=== PATIENT | female | born 1990 | race African-American/Black ===

== ENCOUNTER 2020-08-04 10:56 | Inpatient (IN) | payer OTHER ==
[~2020-08-04] VITALS: Ht 157.5 cm; Wt 65.5 kg
[2020-08-04] VITALS (48 sets, daily range): BP systolic 98–125; BP diastolic 51–77; PULSE 62–107; TEMP 97.9–98.9
--- NOTE | 2020-08-04 11:00 | NUR ---
Patient ambulatory onto unit for labor check. Patient oriented to room, changes into gown, plan of care discussed. EFMS on, VS taken. SVE /-3 per Jerome NANCE. Copious amounts of clear fluid noted with exam. Assessment completed. INT started by Jerome NANCE.
[2020-08-04] MEDS ORDERED: PRENATAL VITAMI1 TA3 PO (11:26)
--- NOTE | 2020-08-04 11:55 | NUR ---
Report to Richard NANCE to assume care of patient at this time.
[2020-08-04 11:57] LABS: BASO % 0.4 % (0.0-2.0); EOS % 0.3 % (0-4.0); HEMOGLOBIN 11.8 g/dl (12.5-16.0); LYMPH % 19.6 % (20.0-51.0); MEAN CELL VOLUME 86 fl (80.0-100.0); MEAN CORPUSCULAR HEMOGLOBIN 29 pg (27.0-31.0); MEAN CORPUSCULAR HGB CONC 33 g/dl (33.0-37.0); MEAN PLATELET VOLUME 10.8 fl (7.4-10.4); MONO # 1.2 (0.1-0.6); MONO % 11.4 % (1.7-9.3); PLATELET COUNT 236 K/mm3 (130-400); RED BLOOD COUNT 4.13 M/mm3 (4.10-5.30); REDCELL DISTRIBUTION WIDTH-CV 12.9 % (11.5-14.5)
[2020-08-04 12:01] LABS: HEMATOCRIT 35.6 % (37.0-47.0)
[2020-08-04 12:03] LABS: TRICYCLIC ANTIDEPRESS URINE NEGATIVE
--- NOTE | 2020-08-04 13:27 | NUR ---
1250 PATIENT SITS UP FOR EPIDUARL. Samara MAYORGA BANK CLERK AT BEDSIDE TO DISCUSS OPTIONS AND ANSWER QUESTIONS WITH PATIENT. PATIENT TOLERATES WELL. SEE Samara MAYORGA CRNA NOTES FOR QUESTIONS.
--- NOTE | 2020-08-04 16:00 | NUR ---
CARE OF THE PT ASSUMED AT THIS TIME. REVIEWED RECORDS AND PLAN OF CARE WITH PT. DENIES NEEDS AT THIS TIME.
--- NOTE | 2020-08-04 16:45 | NUR ---
SVE WITH SLIGHT CHANGE IN STATION AND MORE BLOODY SHOW. FHT'S WITH LATE DECELS. PT REPOSITIONED WEDGE RIGHT WITH PEANUT BALL.
--- NOTE | 2020-08-04 17:00 | NUR ---
CONTINUES WITH RECURRENT LATES. REPOSITIONED AGAIN. DR MOORE NOTIFIED OF SLIGHT CHANGE IN STATION, BLOODY SHOW, RECURRENT LATES AND REPOSITIONING VIA PHONE AT [phone]
--- NOTE | 2020-08-04 17:30 | NUR ---
DR MOORE IN AT 1717. SVE UNCHANGED. PITOCIN TO 6MU AT 1720.
--- NOTE | 2020-08-04 18:20 | NUR ---
Report received from [place] NANCE. Pt resting in bed. Denies needing anything at this time. 1919: SVE 5-6/75/-2. Bloody show noted on exam. Pt repositioned to left lateral with left leg in stirrups. Second dose of Kyle started. 1937: Recurrent deep variabled noted with contractions. Plan of care explained to pt and pt repositioned to right lateral with right leg placed into stirrups. Call light within reach.
--- NOTE | 2020-08-04 20:25 | NUR ---
SVE /-2. CATHRYN CARE PROVIDED AND PT REPOSITIONED TO [facility]. PLAN OF CARE EXPLAINED. 2042: CALLED UNIT FOR UPDATE. SEE PHYSICAN NOTIFICATION. UPDATED ON PTS STATUS OF RECURRENT LATES. 2044: PT REPOISITONED TO WEDGED LEFT WITH PEANUT BALL. PLAN OF CARE EXPLAINED AND QUESTIONS ANSWERED.
--- NOTE | 2020-08-04 23:10 | NUR ---
PT CALLED OUT STATING SHE WAS FEELING PRESSURE AFTER WAKING UP FROM [facility]. SVE /-1, BLOODY SHOW NOTED WITH EXAM. PERICARE PROVIDED AND PADS CHANGED. PT REPOSITIONED TO WEDGED LEFT, [place]IG[place]LERS WITH PEANUT BALL PER REQUEST. PLAN OF CARE EXPLAINED. CALL LIGHT WITHIN REACH.
[2020-08-05] VITALS (16 sets, daily range): BP systolic 101–140; BP diastolic 51–79; PULSE 67–103; TEMP 98–98.9
--- NOTE | 2020-08-05 00:01 | NUR ---
SVE C/+1. Plan of care and pushing with contractions explained to pt who verbalized her understanding. 0006: Pt completes one practice push with this RN. [place] RN requested in room to help hold pt's other leg. Sanchez catheter removed. 0014: FHR deceleration noted doen to 70bpm at lowest point lasting 370 seconds. 0016: Oxygen applied via oxymask at 10L. called and requested at hospital for pushing. 0023: Educated pt to stop pushing. called back and requested for delivery. 0028: at bedside for delivery. Pt prepped and repositioned into footplates. 0031: Spontaneous delivery of infants head. NC X1 reduced by following spontaneous vaginal delivery of viable female infant by . Pitocin stopped. stimulated and bulb suctioned by provider. then placed on mothers chest where care of infant assumed by Dann NANCE. 0034: Spontaneous delivery of intact placenta by . Pitocin restarted at 333mus/hr per protocol. Perineum intact. Pericare provided, pads changed and ice pack applied. Fundus firm, bleeding Moderate with no clots noted. Plan of care and safety precautions explained to pt who verbalized her understanding. Call light within reach.
--- NOTE | 2020-08-05 09:24 | NUR ---
Initial visit; Patient thanked Swimming Instructor for offering congratulations and God's blessings for the of her daughter. Swimming Instructor thanked mom for choosing [facility].
--- NOTE | 2020-08-05 16:16 | NUR ---
caustic plant worker met with patient to assess for needs. This is third baby. Patient has a 6 and 7 year old at home. The father of the baby has arrived and is currently picking up car seat. Patient states she has a pack n play [place] and that her mother is coming at the end of July and will be buying a bassinet. Patient denies unmet needs or supplies. Worker provided resource booklet and encouraged patient to sign up for WIC and utilize Religious charities for any unmet need. Worker collaborated with nursing regarding the above information. Patient has [facility] insurance and is aware that the financial counselor will see her in the morning to secure medicaid application for . Patient stated that [facility] that is very helpful to talk with.
--- NOTE | 2020-08-05 16:30 | NUR ---
Pt thought her children could stay at the hospital with her and father of the baby. She was notified of visitation guidelines. She notifies FOB and he drops off the carseat and belongings at the front entrance of the hospital. Her and the FOB argues with her on the phone about him staying at her house with her kids, he is upset and wants to leave back to [place]. Pt again notified of visitation policy and BLOSSOM Duffy updated on the situation. Pt reports that she has no one else to watch her children. Will continue to follow the situation.
--- NOTE | 2020-08-05 17:20 | NUR ---
Pt reports she was able to get ahold of a friend "geiger [email or web address]" from when she was in the and she is going to hand picker her children for the night.
[2020-08-06 07:30] VITALS: BP 96/53; PULSE 61; TEMP 98.1
[2020-08-06] MEDS ORDERED: IBU800 M1 PO (12:49)
[2020-08-06 15:11] VITALS: BP 112/57; PULSE 90; TEMP 98.2
--- NOTE | 2020-08-06 18:40 | NUR ---
Report recieved. Ambulating in room. POC reviewed and whiteboard updated.
[2020-08-06 20:00] VITALS: BP 114/69; PULSE 116; TEMP 97.9
--- NOTE | 2020-08-06 20:00 | NUR ---
VS and assessment completed at this time. Ambulating well in room while packing belongings for discharge. Reports her ride is on his way. Discharge paperwork reviewed. Information provided on when to call the physician as well as when her follow-up appointment is. Denies questions or concerns.
[2020-08-06 20:05] VITALS: PULSE 94
--- NOTE | 2020-08-06 20:30 | NUR ---
Ambulated to vehicle at this time. Henry Rivas R.N. at side for assistance. Declined assistance into car as well as assistance with carseat.
--- NOTE | 2020-08-20 16:01 | NUR ---
Patient's infant's cord blood was negative for illegal drugs in system.
== END 2020-08-06 20:30 | disposition home or self-care (01) | DRG 807 ==
LOC: LDRO 10:56 → LDR 11:27 → OB 11:27
PROVIDERS: Obstetrics & Gynecology; ADMIT Obstetrics & Gynecology
PROC: 10E0XZZ Delivery of Products of Conception, External Approach (ICD-10-PCS; principal; 2020-08-05)
DX: O80 Encounter for full-term uncomplicated delivery (principal); Z37.0 Single live birth; Z3A.38 38 weeks gestation of pregnancy
CPT/HCPCS: J2540; J2590; J7120